=== PATIENT | male | born 1965 | race Hispanic/Latino ===

== ENCOUNTER 2016-08-12 02:01 | Emergency (ER) | payer BC, OTHER ==
[2016-08-12] MEDS ORDERED: HYDROcodone/Acetaminophen 5/325 mg Tablet ONE (02:44)
--- NOTE | 2016-08-12 09:52 | RAD ---
LEFT HAND 3 VIEWS: HISTORY: Left hand injury. FINDINGS: Expansion of the distal tuft of the ring finger may represent an old injury. No acute fracture, dis location, or radiopaque foreign bodies are apparent. Arthritic changes are most pronounced at the i nterphalangeal joint of the thumb. 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 IMPRESSION: Extensive chronic deformities as detailed above. No acute osseous abnormalities are demonstrated. POS: [facility]
== END 2016-08-12 02:48 | disposition home or self-care (01) ==
LOC: NAV ERS 02:01
DX: S60.222A Contusion of left hand, initial encounter (principal); W20.8XXA Other cause of strike by thrown, projected or falling object, initial encounter; Y92.69 Other specified industrial and construction area as the place of occurrence of the external cause; Y99.0 Civilian activity done for income or pay
CPT/HCPCS: 99001

== ENCOUNTER 2017-06-06 04:58 | Emergency (ER) | payer OTHER ==
[2017-06-06] MEDS ORDERED: Bupivacaine 0.5% 10 ML VIAL ONE (05:32)
[2017-06-06] MEDS ORDERED: Ketorolac Tromethamine 60 MG/2 ML VIAL ONE (05:32)
== END 2017-06-06 06:39 | disposition home or self-care (01) ==
LOC: NAV ERS 04:58
DX: G43.909 Migraine, unspecified, not intractable, without status migrainosus (principal); I10 Essential (primary) hypertension; E66.9 Obesity, unspecified; Z86.73 Personal history of transient ischemic attack (TIA), and cerebral infarction without residual deficits
CPT/HCPCS: 96372; J1885; J3490

== ENCOUNTER 2021-10-26 18:39 | Emergency (ER) | payer BC, OTHER, SELFPAY ==
[2021-10-26] MEDS ORDERED: Acetaminophen 500 MG TAB ONE (19:36)
[2021-10-26 20:09] LABS: #Lymphocytes 0.7 thou/uL (1.20-3.40); #Monocytes 0.8 thou/uL (0.11-0.59); %Basophils 0.2 % (0.0-1.0); %Eosinophils 0.2 % (0.0-10.0); %Monocytes 8.2 % (0.0-10.0); %Neutrophils 84.4 % (42.0-75.0); Hemoglobin 11.5 g/dL (14.0-18.0); Manual Diff?? NO; Mean Corpuscular HGB CONC 30.8 g/dL (32.0-36.0); Mean Corpuscular Hemoglobin 27.4 pg (27.0-31.0); Mean Corpuscular Volume 89.1 fL (78.0-98.0); Mean Platelet Volume 8.1 fL (7.4-10.4); Platelet Count 159 thou/uL (130-400); RBC Distribution Width 13.1 % (11.5-14.5); Red Blood Cell (RBC) Count 4.19 mill/uL (4.70-6.10); White Blood Cell (WBC) Count 9.4 thou/uL (4.8-10.8)
[2021-10-26 20:22] LABS: ALT (SGPT) 22 U/L (8-55); AST (SGOT) 21 U/L (5-34); Albumin 3.6 g/dL (3.5-5.0); Alkaline Phosphatase 69 U/L (40-110); Anion Gap 15 mmol/L (10-20); BUN (Urea Nitrogen) 38 mg/dL (8.4-25.7); Bilirubin, Total 1.6 mg/dL (0.2-1.2); Calc. Creatinine Clearance 0 mL/min (70-130); Calcium 7.9 mg/dL (7.8-10.44); Carbon Dioxide 20 mmol/L (22-29); Chloride 107 mmol/L (98-107); Estimated GFR 41; Globulin 2.7 g/dL (2.4-3.5); Glucose 95 mg/dL (70-105); Potassium 3.7 mmol/L (3.5-5.1); Protein, Total 6.3 g/dL (6.0-8.3); Sodium 138 mmol/L (136-145)
[2021-10-26] MEDS ORDERED: Sodium Chloride 0.9% 1,000 ML ONE ×2 (20:42→21:10)
[2021-10-26 22:04] LABS: Bilirubin Negative (Negative); Blood, Urine Small (Negative); Clarity Cloudy (Clear); Glucose, Urine (Dipstick) Negative (Negative); Ketone, Urine Negative (Negative); Leukocyte Large (Negative); Nitrite Negative (Negative); Protein, Urine (Dipstick) 30 mg/dL (Neg-Trace); Urobilinogen 0.2 mg/dL (Less than 2); pH, Urine 5.5 (5.0-9.0)
[2021-10-26 22:09] LABS: Bacteria/HPF None Seen HPF (None Seen); WBC/HPF Greater than 50 HPF (0-3)
[2021-10-26 22:10] LABS: SARS-CoV-2 NAA Rapid Test Not Detected (NotDetected)
[2021-10-26] MEDS ORDERED: Sodium Chloride 0.9% 100 ML ONE (22:23)
[2021-10-26] MEDS ORDERED: cefTRIAXone\\ROCEPHIN 1 GM VIAL ONE (22:23)
== END 2021-10-26 23:04 | disposition home or self-care (01) ==
LOC: NAV ERS 18:39
DX: E86.9 Volume depletion, unspecified (principal); A08.4 Viral intestinal infection, unspecified; I10 Essential (primary) hypertension; E11.9 Type 2 diabetes mellitus without complications; E78.5 Hyperlipidemia, unspecified; Z79.899 Other long term (current) drug therapy; Z20.822 Contact with and (suspected) exposure to COVID-19
CPT/HCPCS: 36416; 71045; 74176; 80053; 81003; 81015; 83605; 85025; 87040; 87077; 87086; 87186; 96361; 96365; 36415-59; J0696; J3490; J7050